=== PATIENT | male | born 1960 | race Caucasian/White ===

== ENCOUNTER 2016-06-09 10:43 | Day surgery (SDC) | payer OTHER ==
[2016-06-07 15:55] VITALS: BMI 25.7
--- NOTE | 2016-06-09 00:27 | P.GSHP ---
History of Present Illness H&P Date: 06/09/16 CHIEF COMPLAINT: Metastatic colon caner. HISTORY OF PRESENT ILLNESS: The patient is a 55-year-old male diagnosed with metastatic colon cancer. He needs a Mediport placement for chemotherapy. PAST MEDICAL HISTORY: See list PAST SURGICAL HISTORY: See list CURRENT MEDICATIONS: See list. ALLERGIES: See list. SOCIAL HISTORY: No active tobacco or alcohol use. FAMILY HISTORY: Noncontributory. REVIEW OF ORGAN SYSTEMS: CONSTITUTIONAL: Has weight loss. PHYSICAL EXAMINATION: Vital signs: Stable GENERAL: Well developed and in no acute distress. Pleasant. HEENT: No sclera icterus. Extraocular movements grossly intact. Moist buccal mucosa. Head is atraumatic, normocephalic. Hears conversational speech. No nasal drainage. NECK: Supple without lymphadenopathy. No JV distention. CHEST: Non-labored respirations and equal bilateral excursions. CARDIOVASCULAR: Regular rate and rhythm. Palpable 2+ radial pulses. ABDOMEN: Nontender. MUSCULOSKELETAL: No clubbing, cyanosis or edema. NEUROLOGIC: No focal or lateralizing signs. PSYCH: Appropriate affect. Alert and oriented to person, place and time. ASSESSMENT: 1. Metastatic colon caner. 2. Need for chemotherapeutic access. PLAN: 1. Agree with Port-A-Cath placement. Past Medical History Past Medical History: Cancer, Hyperlipidemia, Skin Disorder Additional Past Medical History / Comment(s): COLON CA CURRENT, POSS LIVER ALSO. SKIN GRAFTS UPPER TORSO, 45% FULL THICKNESS D/T WORK INJURY. History of Any Multi-Drug Resistant Organisms: None Reported Additional Past Surgical History / Comment(s): COLONOSCOPY 06/05/16. SKIN GRAFTS TO UPPER TORSO, 45%. Past Anesthesia/Blood Transfusion Reactions: No Reported Reaction Past Psychological History: No Psychological Hx Reported Smoking Status: Current every day smoker Past Alcohol Use History: Occasional Additional Past Alcohol Use History / Comment(s): SMOKED SINCE AGE 17 (QUIT FOR 2 YEARS IN PAST), 1 PPD. Past Drug Use History: None Reported - Past Family History Father Family Medical History: Cancer Mother Family Medical History: Cancer Medications and Allergies Home Medications Medication Instructions Recorded Confirmed Type Ferrous Sulfate [Feosol] 200 mg PO DAILY 06/07/16 06/07/16 History Naproxen Sodium [Aleve] 220 mg PO BID PRN 06/07/16 06/07/16 History Allergies Allergy/AdvReac Type Severity Reaction Status Date / Time aspirin Allergy Swelling Verified 06/07/16 15:29
[~2016-06-09 10:43] MED LIST: DEXAMETHASONE SOD PHOSPHATE 10 MG/ML 1 ML VIAL IV ONE; HYDROmorphone 1 MG/ML 1 ML SYRINGE IVP PRN; LACTATED RINGERS 1,000 ML IV SCH; LIDOCAINE 1% 20 ML VIAL (10MG/ML) FOR IV START INTRADERMA PRN; MIDAZOLAM 2 MG/2 ML VIAL IV PRN; ONDANSETRON 4 MG/2 ML VIAL IVP ONE; SCOPOLAMINE 1.5MG/72HR PATCH TRANSDERM ONE; ceFAZolin 2 GM in SODIUM CHLORIDE 0.9% 100 ML IVPB ONE
[2016-06-09 11:34] VITALS: TEMP 98.2
[2016-06-09 12:21] LABS: Prothrombin Time 10.2 sec (9.0-12.0)
[2016-06-09 12:36] LABS: Partial Thromboplastin Time 19.1 sec (22.0-30.0)
[2016-06-09] MEDS ORDERED: LIDOCAINE 1% INJ 10MG/ML (20 ML MDV) SQ ONE ×2 (13:06→13:47)
[2016-06-09] MEDS ORDERED: MIDAZOLAM 2 MG/2 ML VIAL ONE (13:21)
[2016-06-09] MEDS ORDERED: LIDOCAINE 1% INJ 10MG/ML (20 ML MDV) ONE (13:21)
[2016-06-09] MEDS ORDERED: PROPOFOL 10 MG/ML 20 ML VIAL IV ONE (13:21)
[2016-06-09] MEDS ORDERED: KETAMINE 10 MG/ML 20 ML VIAL ONE (13:21)
[2016-06-09] MEDS ORDERED: SODIUM CHLORIDE 0.9% 50 ML with ceFAZolin 2,000 MG IV ONE ×2 (13:21)
[2016-06-09] MEDS ORDERED: fentaNYL (PF) 50 MCG/ML 2 ML AMP ONE (13:21)
[2016-06-09] MEDS ORDERED: ONDANSETRON 4 MG/2 ML VIAL IVP PRN (14:18)
[2016-06-09] MEDS ORDERED: NALOXONE 0.4 MG/ML 1 ML VIAL IV PRN (14:18)
[2016-06-09] MEDS ORDERED: HYDROcodone/APAP 5-325MG 1 EACH TAB PO PRN (14:18)
--- NOTE | 2016-06-09 14:23 | P.PCN ---
Date of Procedure: 06/09/16 Description of Procedure: SURGEON: GLORIA CLIFFORD MD WOOL HANKER: None. PREOPERATIVE DIAGNOSES: 1. Metastatic colon cancer. 2. Need for chemotherapeutic access. POSTOPERATIVE DIAGNOSES: 1. Metastatic colon cancer. 2. Need for chemotherapeutic access. PROCEDURES PERFORMED: 1. Ultrasound guided central venous access of the left internal jugular venous vein. 2. Fluoroscopic guidance for central venous access left internal jugular vein 6 seconds. 3. Placement of left internal jugular power port 6 Indonesian by Bard. ANESTHESIA: IV sedation with 20 mL 1% lidocaine. ESTIMATED BLOOD LOSS: 5 mL. SPECIMENS REMOVED: None. COMPLICATIONS: None. INDICATIONS: The patient is a 55-year-old male recently diagnosed with metastatic colon cancer. He presents for chemotherapeutic access for progression of his disease. Benefits and risks of surgical intervention were described including bleeding, infection, mechanical problems with his port. Informed consent was obtained. DESCRIPTION OR PROCEDURE: Patient was brought into the operating room, laid in supine position. After adequate IV sedation, the chest and right neck were prepped and draped in a standard sterile fashion including the shoulder with ChloraPrep. Timeout protocol was confirmed with the surgical team regarding the patient's name, procedure to be performed including preoperative medications for which he received antibiotics. Bilateral SCDs were placed. An ultrasound was used to capture views of the left internal jugular vein including left carotid artery, which was patent and without thrombus along its course. The left IJ was then localized using anesthetic for the skin. A 16 Indonesian needle was used to access the IJ. Threading was without difficultly as the needle was advanced into the IJ with dark nonpulsatile venous blood. A J-wire was placed under fluoroscopic guidance. Two fingerbreadths distal to the clavicle, on the lateral third, a transverse 1.5 to 2 cm incision was deepened into the skin after localizing the skin. A pocket was created for the port. The port on the back table was flushed with heparinized saline and then attached to the catheter tubing. An adapter was fastened to the actual port site over the tubing. The port easily had fit snug into the pocket. A subcutaneous tunneler was placed along the open end of the tubing and brought out through the separate stab incision. Fluoroscopic guidance confirmed no kinking along the tubing and the port site. Next, the J-wire was exchanged for a catheter sheath for which the tubing was cut to 30 cm and then advanced through the catheter sheath. The Peel-away sheath was then removed and the tubing was secured at the junction of the superior vena cava as well as the right atrium. This was all done under fluoroscopic guidance for a total of 6 seconds. Easy pullback as well as return and aspiration was obtained of the port site. The skin incision was closed using layers using 3-0 Vicryl for the subcu followed by 4-0 Monocryl in a running subcuticular fashion. At the stick site this was also reapproximated using 4-0 Monocryl. The incisions were covered with gauze and Tegaderm. The skin was cleansed and Dermabond was applied. A total of 20 mL of local anesthetic was placed. At the end of the procedure, needle, sponge, and instrument count was verified correct by surgical elastic knitter. Heparin lock of 5 mL was placed. The patient was awoken and pain free and taken to the second stage postanesthesia care unit. The patient tolerated the procedure well. FINDINGS: 1. No thrombus encountered along the left carotid artery or internal jugular vein. 2. Access of the left internal jugular vein under ultrasound guidance. 3. Fluoroscopy of 6 seconds. 4. Final fluoroscopic image confirmed no mechanical kink of the port site or at the junction at the skin puncture site. Plan - Discharge Summary Discharge Medication List Ferrous Sulfate [Feosol] 200 mg PO DAILY 06/07/16 [History] Naproxen Sodium [Aleve] 220 mg PO BID PRN 06/07/16 [History] Follow up Appointment(s)/Referral(s): Gloria Clifford MD [STAFF PHYSICIAN] - 06/13/16 Patient Instructions/Handouts: *Surgery [facility] - (Anesthesia) Discharge Instructions Outpatient Surgery, How to Care for Your Implanted Venous Access Port (GEN) Activity/Diet/Wound Care/Special Instructions: No wide swings of the arm. May shower. Dressing may be removed in the office, otherwise by June 13 Discharge Disposition: HOME SELF-CARE
--- NOTE | 2016-06-09 14:44 | FL ---
EXAMINATION TYPE: FL guidance operating room DATE OF EXAM: 06/09/2016 2:17 PM CLINICAL HISTORY: Colon cancer, Port-A-Cath for chemotherapy. TECHNIQUE: Fluoroscopy. COMPARISON: None. FINDINGS: Fluoroscopic guidance was provided during Port-A-Cath insertion procedure performed by Dr. Clifford. A total of 6 seconds of fluoroscopic time was utilized during the procedure and 1 spot i mage is acquired. Single intraoperative image acquired shows partial visualization of left internal j ugular Mediport catheter. IMPRESSION: As Above.
[2016-06-09 14:48] VITALS: PULSE 76; RESP 18
[2016-06-09 15:00] VITALS: BP 132/83
--- NOTE | 2016-06-09 15:14 | XR ---
EXAMINATION TYPE: XR chest 1V confirm line [facility] DATE OF EXAM: 06/09/2016 2:41 PM COMPARISON: NONE HISTORY: 55-year-old male port placement TECHNIQUE: Single frontal view of the chest is obtained. FINDINGS: Left anterior chest wall injection port with IJ access. The superior loop extends above and outside t he field of view. The tip is at the level of the mid SVC. Heart is normal size. Aorta within normal l imits. There is a 1.1 cm nodular density projecting at the peripheral left midlung. No consolidation or pleural effusion. IMPRESSION: 1. Left-sided chest wall injection port with catheter tip at the mid SVC level. The superior IJ loop extends up in the neck beyond the [id number]. 2. Suggestion of a 1.1 cm left midlung pulmonary nodule. Correlate as to if this is a known nodule. I f this is not a known nodule, contrast-enhanced CT chest evaluation would be recommended.
== END 2016-06-09 15:36 | disposition home or self-care (01) ==
LOC: OR 10:43
PROVIDERS: ATTEND Surgery Plastic and Reconstructive Surgery
DX: C18.9 Malignant neoplasm of colon, unspecified (principal); C78.00 Secondary malignant neoplasm of unspecified lung; C78.7 Secondary malignant neoplasm of liver and intrahepatic bile duct; R91.8 Other nonspecific abnormal finding of lung field; E78.5 Hyperlipidemia, unspecified; F17.200 Nicotine dependence, unspecified, uncomplicated; Z79.1 Long term (current) use of non-steroidal anti-inflammatories (NSAID); Z79.899 Other long term (current) drug therapy; Z88.6 Allergy status to analgesic agent
CPT/HCPCS: 36561; 85610; 85730; C1788; J2250; J1100; J2405; J0690; J2001; J3010; J1642; J2704; J1644

== ENCOUNTER → 2016-06-10 | Outpatient (CLI) | payer OTHER ==
--- NOTE | 2016-06-12 19:05 | PE ---
EXAMINATION TYPE: PET CT fusion skull to thigh DATE OF EXAM: 06/10/2016 10:30 AM CLINICAL HISTORY: 55-year-old male colon cancer, initial staging. Patient with left-sided port placem ent on 06/09/2016. TECHNIQUE: Following the intravenous administration of 15.59 mCi of F-18 FDG, whole body images are performed from the skull base to the midthigh. Images are reviewed on the computer in the coronal, axial, and sagittal planes. Reconstructed rotating images are created on independent workstation and reviewed on the computer. A localization and attenuation correction CT is performed in conjunction with the PET scan. Glucose level: 93 mg/dL CTDI: 4.6 mGy DLP: 409.56 mGy-cm COMPARISON: None. FINDINGS: PET: There is a 2.0 x 1.2 cm ovoid intermediate density lesion along the left inferior margin of the hyoid bone, axial image 39 that shows no discrete FDG uptake. A 9 mm anterior right middle lobe pulmonary nodule, axial image 100 (no significant uptake), 7 mm ant erior left midlung pulmonary nodule axial image 83 (no significant uptake), and a 1.1 cm lingular pul monary nodule axial image 93 (max SUV 1.2) are all suspicious. There are too numerous to count partially calcified masses within the liver, largest anteriorly in th e left hepatic lobe measuring approximately 3.8 cm highly suggestive of mucinous metastases, maximal SUV 11.4. Incidental tiny 8 mm low-density nodule lateral limb left adrenal gland. This shows no discrete FDG u ptake and is suggestive of a small lipid rich adrenal adenoma. There is abnormal soft tissue thickening measuring up to 6.8 cm at the ileocecal junction within the cecum, maximal SUV 13.6. There are adjacent right lower quadrant and right mid abdominal mesenteric lymph nodes that are enlar ged measuring up to 1 cm, axial image 175, maximal SUV 1.9, that are probably reactive given the lack of significant uptake. There is focal intense FDG uptake in the posterior midline of the prostate gland probably some urine. However, given focality, further evaluation with PSA and physical exam findings is recommended, maxi mal SUV 8.9. ATTENUATION CORRECTION CT: Large polyp or mucosal retention cyst within the left maxillary sinus shows no FDG uptake. Mastoid ai r cells well pneumatized. No cervical lymphadenopathy seen. Left anterior chest wall injection port with tip at the level of the lower SVC. Heart is normal size without pericardial effusion. Ascending aorta is ectatic at 3.7 cm with a conventional arch vessel br anching anatomy. No thoracic lymphadenopathy by CT size criteria. Incidental mild bilateral gynecomas tia. No consolidation or pleural effusion. Cholelithiasis with faceted gallstones measuring up to 1.6 cm. No abnormal gallbladder distention. No dilated small bowel, free fluid, or free air. Mild atherosclerotic calcifications throughout the a bdominal aorta and mild to moderate within the iliac arteries. There is moderate circumferential bladder wall thickening and incomplete bladder distention. Prostate gland is enlarged measuring 4.8 cm wide. Bones: Mild degenerative changes at the hips. Additional degenerative changes mid to lower lumbar spi ne. No osseous destructive process seen. IMPRESSION: 1. Large intensely hypermetabolic 6.8 cm cecal mass compatible with patient's known colon cancer. 2. Adjacent right lower quadrant and right mid abdominal mesenteric lymphadenopathy measuring up to 1 cm. These may be reactive given only minimal FDG uptake. 3. Diffuse hepatic metastases measuring up to 3.8 cm show intense hypermetabolism. These calcified me tastatic lesion suggest mucinous metastasis. 4. Three metastatic pulmonary nodules measuring up to 1.1 cm. 5. Correlate with PSA values and physical exam findings for a nodule of intense uptake along the midl ine posterior prostate. Findings could represent prostate cancer or urine contamination along the pro static urethra. 6. Incidental 2.0 cm ovoid lesion along the inferior margin of the left hyoid bone shows no significa nt FDG uptake. A thyroglossal duct cyst is suspected. Correlate with physical exam findings and targe rosa ultrasound to further evaluate. 7. Moderate circumferential bladder wall thickening could represent bladder wall hypertrophy or cysti tis. Additional incidental findings include cholelithiasis and an 8mm left adrenal adenoma.
== END | disposition home or self-care (01) ==
LOC: RADPETMAIN 07:55
PROVIDERS: ATTEND Internal Medicine Hematology & Oncology
DX: C18.2 Malignant neoplasm of ascending colon (principal); R59.0 Localized enlarged lymph nodes; C78.7 Secondary malignant neoplasm of liver and intrahepatic bile duct; R91.8 Other nonspecific abnormal finding of lung field; M89.9 Disorder of bone, unspecified; R93.49 Abnormal radiologic findings on diagnostic imaging of other urinary organs
CPT/HCPCS: 78815; A9552

== ENCOUNTER 2016-06-19 07:54 | Day surgery (SDC) | payer OTHER ==
[2016-06-19] MEDS ORDERED: ALPRAZolam 0.5 MG TAB PO STA (08:32)
[2016-06-19 08:36] LABS: Mean Platelet Volume 6.3
[2016-06-19 08:39] LABS: Prothrombin Time 10.3 sec (9.0-12.0)
[2016-06-19] MEDS ORDERED: HYDROmorphone 1 MG/ML 1 ML SYRINGE IVP STA (09:03)
--- NOTE | 2016-06-19 09:55 | CT ---
EXAMINATION TYPE: CT guided FNA DATE OF EXAM: 06/19/2016 9:49 AM COMPARISON: NONE HISTORY: Colon cancer CT DLP: 1393mGycm PROCEDURE: The risks, applications, benefits and alternatives, were discussed with the patient and questions wer e answered. Informed consent was obtained. The patient was placed supine on the fluoroscopic table, prepped and draped in the usual sterile fashion. A 22-gauge system was utilized with direct passage of the needle into the left lobe liver lesion und er CT guidance. Samples were obtained with fine needle aspiration. Pathology confirmed adequate queenie ple. The patient was stable throughout procedure and remained stable upon discharge from radiology. All e lements of maximal barrier and sterile technique were utilized. IMPRESSION: 1. Successful left lobe liver mass fine needle aspiration under CT guidance.
[2016-06-19 12:54] VITALS: RESP 16; TEMP 97
[2016-06-19 13:02] VITALS: BP 102/71; PULSE 82
== END 2016-06-19 13:34 | disposition home or self-care (01) ==
LOC: RADPROMAIN 07:54
PROVIDERS: ATTEND Internal Medicine Hematology & Oncology
DX: C78.7 Secondary malignant neoplasm of liver and intrahepatic bile duct (principal)
CPT/HCPCS: 88305; 88173; 85049; 85610; 88342; 88341; 96374; 77012; 10022; J1170; J1642

== ENCOUNTER → 2016-09-20 | Outpatient (CLI) | payer OTHER ==
[2016-09-20 10:54] LABS: Blood Urea Nitrogen 16 mg/dL (9-20); Non-African American GFR(MDRD) >60 (>60 ml/min/1.73 sqM)
--- NOTE | 2016-09-20 13:50 | CT ---
EXAMINATION TYPE: CT ChestAbdPelvis w con DATE OF EXAM: 09/20/2016 COMPARISON: Prior CT dated 06/05/2016 HISTORY: Colon cancer. Suspected Mets CT DLP: 1491 mGycm Automated exposure control for dose reduction was used. CONTRAST: CT scan of the chest, abdomen and pelvis is performed with Oral Contrast and with IV Contrast, patien t injected with 100 ml mL of Omnipaque 300. FINDINGS: LUNGS: The left upper lobe lung nodule now measures approximately 7 mm medially on axial slice 21 kiran sured 8 mm on prior. The larger left upper lobe lung nodule laterally on axial image 29 measuring 9 m m on today's exam and approximately 14 mm on previous. The right upper lobe lung nodule measures appr oximately 7 to 8 mm on today's exam and measured 9 mm on prior. MEDIASTINUM: There are no greater than 1 cm hilar or mediastinal lymph nodes. No pericardial effusi on is seen. AORTA: No significant abnormality is seen. OTHER: No additional significant abnormality is seen. LIVER/GB: Multiple liver lesions are again noted. The medial left lobe lesion measures approximately 3.5 cm in greatest dimension on today's exam and measured approximately 4.8 cm in greatest dimension on prior. Lesion towards the dome measures approximately 19 mm on today's exam and measured approxima tely 2.4 cm on previous. Subcentimeter calcified lesions additional lesion show smaller dimensions as compared to prior. Again noted compatible with patient's history of colon cancer. PANCREAS: No significant abnormality is seen. SPLEEN: Spleen is enlarged and now measures approximately 14 cm which is increased compared to prior exam. ADRENALS: No significant abnormality is seen. KIDNEYS: No significant abnormality is seen. REPRODUCTIVE ORGANS: The prostate is enlarged. BOWEL: Abnormal thickening present at the level of the appendix although there is some luminal contr ast present. The cecum shows abnormal thickening of soft tissue similar to prior exam. There is likel y a lipoma in the 3rd-4th portion of the duodenum. FREE AIR: No Free Air visible. ASCITES: None seen. RETROPERITONEAL ADENOPATHY: No retroperitoneal adenopathy is seen. LYMPH NODES: No greater than 1 cm abdominal or pelvic lymph nodes are appreciated. URINARY BLADDER: Urinary bladder wall thickening likely due to chronic outlet obstruction. PELVIC ADENOPATHY: None visualized. OSSEOUS STRUCTURES: No significant abnormality is seen. IMPRESSION: Findings compatible with metastatic colon cancer, there is apparent treatment response as described. Splenomegaly.
== END | disposition home or self-care (01) ==
LOC: RADPROMAIN 10:08
PROVIDERS: ATTEND Internal Medicine Hematology & Oncology
DX: C18.2 Malignant neoplasm of ascending colon (principal); R16.1 Splenomegaly, not elsewhere classified
CPT/HCPCS: 82565; 84520; 71260; 74177; 36415; Q9967; J1642

== ENCOUNTER → 2016-12-26 | Outpatient (CLI) | payer OTHER ==
[2016-12-26 09:39] LABS: Blood Urea Nitrogen 11 mg/dL (9-20); Non-African American GFR(MDRD) >60 (>60 ml/min/1.73 sqM)
--- NOTE | 2016-12-26 12:12 | CT ---
EXAMINATION TYPE: CT ChestAbdPelvis w con DATE OF EXAM: 12/26/2016 COMPARISON: 09/20/2016 HISTORY: 56-year-old male colon CA with mets TECHNIQUE: Contiguous axial scanning of the chest, abdomen, and pelvis performed with IV Contrast, pa tient injected with 100 mL of Omnipaque 300. Delayed images through the kidneys were obtained. Marshall l/sagittal reconstructions performed. CT DLP: 586.4 mGycm Automated exposure control for dose reduction was used. FINDINGS: CHEST: Heart is normal size without pericardial effusion. Ectatic ascending aorta 3.6 cm. There is conventional arterial vessel branching anatomy. Scattered nonenlarged mediastinal lymph nodes are unchanged from prior. No thoracic lymphadenopathy b y CT size criteria. Mild dependent atelectasis in the lungs. - Stable 3 mm pulmonary nodule on the minor fissure, axial image 36. - 5 mm anterior left midlung pulmonary nodule axial image 27 versus 7 mm, previously. - 7 mm lingular pulmonary nodule smaller now. Measured 9 mm on 09/20/2016 and 11 mm on 06/10/2016. - Minimal poorly defined groundglass at the site of the anterior right middle lobe pulmonary nodule, axial image 42, versus 6 mm and 9 mm on 09/20/2016 and 06/10/2016, respectively. No acute pulmonary nodule is seen. No consolidation or pleural effusion. Mild bilateral gynecomastia. ABDOMEN: Partially calcified metastases are redemonstrated in the liver. - These are either stable or minimally smaller, largest centrally in the liver measuring 3.0 cm versu s 3.1 cm, previously. - Left hepatic dome mass measures 2.5 cm versus 2.7 cm, previously. - Right hepatic dome lesion measures 2.2 cm versus 2.4 cm, previously. - Segment 6 right liver lobe mass measures 1.8 cm versus 1.9 cm, previously. - Some lesions show increasing calcifications that could reflect some degree of treatment response. Portal venous system is patent. No biliary ductal dilatation. Multiple gallstones are present measuring up to 1.7 cm. Spleen is enlarged measuring 16.9 cm on axial series versus 14.1 cm, previously. Adrenal glands, kidneys, and pancreas show no gross abnormality. Continued cecal wall thickening extending to the region of the ileocecal junction. Right lower quadra nt mesenteric lymph node just adjacent measures up to 7 mm versus 9 mm, previously. There adjacent no nenlarged lymph nodes are also slightly smaller. Persistent mild wall thickening of the appendix but with contrast extending within the lumen. There is mild fat stranding along the cecum probably posttreatment change. Scattered prominent mesenteric lymph nodes such as in the left abdomen measure up to 7 mm but do not appear significantly changed, likely reactive/post inflammatory. Redemonstrated lipoma along the third portion of the duodenum. No dilated small bowel, free fluid, or free air. Oral contrast progressed to the rectum. Pelvis: Bladder is urine distended. Prostate gland is enlarged measuring 5.2 cm wide. No abnormal fluid colle ction in the pelvis or pelvic lymphadenopathy seen. Bones: Probable vasectomy clips. Degenerative changes lower lumbar spine. Old healed fracture deformity righ t posterior rib. No osseous destructive process. IMPRESSION: 1. Residual cecal wall thickening at the site of patient's known colon cancer. There is some surround ing fat stranding now and mild edema that could relate to posttreatment change. 2. Adjacent right lower quadrant mesenteric lymph nodes are slightly smaller now measuring up to 7 mm versus 9 mm, previously. 3. Hepatic metastases are either stable or slightly smaller in size, having increased by a few millim eters. Largest measuring 3.1 cm. The lesions are partially calcified which could reflect mucinous met astases or posttreatment effect. 4. The 3 previous pulmonary nodules are smaller, largest measuring up to 7 mm versus 9 mm, previously . One of the nodules has nearly resolved. 5. Splenomegaly (16.9 cm versus 14.1 cm, previously).
== END | disposition home or self-care (01) ==
LOC: RADPROMAIN 08:57
PROVIDERS: ATTEND Internal Medicine Hematology & Oncology
DX: C78.7 Secondary malignant neoplasm of liver and intrahepatic bile duct (principal); C18.2 Malignant neoplasm of ascending colon; R91.8 Other nonspecific abnormal finding of lung field; R16.1 Splenomegaly, not elsewhere classified; R60.0 Localized edema; Z88.6 Allergy status to analgesic agent
CPT/HCPCS: 82565; 84520; 71260; 74177; 36415; Q9967

== ENCOUNTER → 2017-04-11 | Outpatient (CLI) | payer OTHER ==
[2017-04-11 11:21] LABS: Blood Urea Nitrogen 13 mg/dL (9-20)
--- NOTE | 2017-04-11 14:47 | CT ---
EXAMINATION TYPE: CT ChestAbdPelvis w con DATE OF EXAM: 04/11/2017 COMPARISON: 12/26/2016 and 09/20/2016. HISTORY: Colon CA CT DLP: 639.3 mGycm. Automated Exposure Control for Dose Reduction was Utilized. CONTRAST: CT scan of the thorax, abdomen and pelvis is performed with IV Contrast, patient injected with 100 mL of Omnipaque 300. FINDINGS: LUNGS: There is a slightly smaller 2 mm pulmonary nodule within the right middle lobe on series 4 emely ge 31. A slightly smaller spiculated 6 mm pulmonary nodule is seen within the left upper lobe on seri es 4 image 31 (previously measuring 7 mm). A slightly smaller 4 mm anterior left upper lobe pulmonary nodule on series 4 image 23 previously measured 5 mm. There is resolution of the previously seen elle undglass attenuation at the site of prior right middle lobe nodule. Minimal bibasilar subsegmental at electasis is seen. No new pulmonary nodule or mass. No focal consolidation, pleural effusion or pneum othorax. MEDIASTINUM: The ascending thoracic aorta is again ectatic measuring 3.7 cm. This does not fit criter ia for aneurysmal dilatation. Left-sided Mediport terminates in the cavoatrial junction, appropriatel y placed. Similar right hilar lymph nodes measure 1.0 cm in short axis, unchanged from the prior righ t paratracheal lymph node contains calcifications as does the right hilar lymph node. There are no gr eater than 1 cm hilar or mediastinal lymph nodes. No pericardial effusion is seen. OTHER: Bilateral minimal symmetric retroareolar gynecomastia is present. LIVER/GB: Partially calcified hepatic lesions are indicative of treated metastasis seen in segment 8 on series 3 image 46 measuring 1.1 cm and 6 mm and previously measuring 1.3 cm and 6 mm and within th e left hepatic lobe on series 3 image 49 measuring 2.2 cm and previously measuring 2.5 cm. Additional lesion on image 51 mm 1.8 cm in long axis as compared to 2.2 cm on the prior exam on series 3 image 55 there is an additional 2.8 cm lesion that is minimally decreased in size from the prior exam as it measured 3.0 cm. Other smaller calcified punctate lesions are seen scattered throughout the hepatic parenchyma. Lastly within the medial right inferior hepatic lobe there is also decrease in size of an additional lesion measuring 1.3 cm on image 62 and previously measured 1.8 cm. The gallbladder demonstrates multiple large lamellated gallstones within the gallbladder neck and oth er smaller calcified gallstones within the gallbladder body layering dependently. No surrounding rafaela cholecystic fluid or fat stranding in the right upper quadrant. PANCREAS: No significant abnormality is seen. No ductal dilatation. SPLEEN: The spleen remains enlarged although has decreased in size from the prior exam where it measu red 16.9 cm in longitudinal dimension and now measures 16.1 cm on image 58. ADRENALS: No significant abnormality is seen. No nodularity. KIDNEYS: Kidneys enhance symmetrically without discrete lesion or hydronephrosis. BOWEL AND LYMPH NODES: There is persistent cecal wall thickening that has become less conspicuous in the interim with bowel wall thickening measuring up to 8 mm in the nondependent aspect. Pericecal zacarias cified lymph node on image 85 represents treated adenopathy. There is continued improvement in adenop athy with the previously seen 7 mm short axis lymph node on image 82 now measuring 4 mm, nonenlarged. No other evidence of adenopathy within the abdomen or pelvis. Again there is a lipoma, benign, along the third portion of the duodenum. GENITAL ORGANS: Prostate gland is again enlarged and heterogenous containing central zone powderlike calcifications. OSSEOUS STRUCTURES: There is redemonstration of an old healed fracture deformity of the posterior mar gin of rib 10 and 9 on the right. No new suspicious osseous lesions. OTHER: Mastectomies surgical clips are incidentally noted. Moderate calcific and noncalcific atheroma tous plaquing is seen of the abdominal aorta. Abdominal aorta is of normal course and caliber. IMPRESSION: 1. Continued response to treatment with decreased size of nearly all of the partially calcified hepat ic lesions and pulmonary nodules, decrease in size of the right lower quadrant pericecal adenopathy ( now 4 mm in short axis and nonenlarged), and improvement in degree of cecal wall thickening 2. No new adenopathy or new visceral metastasis within the chest, abdomen, or pelvis. 3. No new suspicious osseous lesions.
== END | disposition home or self-care (01) ==
LOC: RADPROMAIN 10:27
PROVIDERS: ATTEND Internal Medicine Hematology & Oncology
DX: C18.2 Malignant neoplasm of ascending colon (principal); R91.8 Other nonspecific abnormal finding of lung field; K76.9 Liver disease, unspecified; R59.0 Localized enlarged lymph nodes
CPT/HCPCS: 82565; 84520; 71260; 74177; Q9967; J1642

== ENCOUNTER → 2017-07-03 | Outpatient (CLI) | payer OTHER ==
[2017-07-03 13:55] LABS: Blood Urea Nitrogen 12 mg/dL (9-20)
--- NOTE | 2017-07-03 16:24 | CT ---
EXAMINATION TYPE: CT ChestAbdPelvis w con DATE OF EXAM: 07/03/2017 COMPARISON: 04/11/2017 HISTORY: 56-year-old male follow up study for known colon ca with mets to liver. TECHNIQUE: Contiguous axial scanning of the chest, abdomen, and pelvis performed with IV Contrast, pa tient injected with 90 mL of Isovue 300. Delayed images through the kidneys were obtained. Coronal/sa gittal reconstructions performed. CT DLP: 554.5 mGycm Automated exposure control for dose reduction was used. FINDINGS: Chest: Heart normal size without pericardial effusion. Borderline ectasia ascending aorta at 3.5 cm. Conventional arch vessel branching anatomy. Left anterior chest wall injection port with catheter tip at the mid SVC level. A 1 cm right hilar lymph node is unchanged. Otherwise, no thoracic lymphadenopathy by CT size criteri a. -Anterior left midlung pulmonary nodule smaller 5 mm versus 6 mm on 04/11/2017. -Minimal punctate 2 mm nodularity remains in the anterior right midlung relatively stable. -4 mm anteromedial left midlung pulmonary nodule axial image 20 is unchanged to slightly smaller. No new pulmonary nodule or mass. Mild dependent atelectasis. No consolidation or pleural effusion. ABDOMEN: Small hiatal hernia. Mild hepatic ascites laterally. Partially calcified liver lesions are redemonstrated. These are either stable to slightly smaller, fo r example, anterior left liver lobe measuring 2.0 cm versus 2.2 cm, previously, 1.8 cm right liver lo be versus 2.0 cm, previously, 2.1 cm at the shweta hepatis versus 2.8 cm, previously. Redemonstrated cholelithiasis with calculi measuring up to 1.6 cm. Portal venous system is patent. No biliary ductal dilatation. Adrenal glands, kidneys, and pancreas show no gross abnormality. Redemonstrated is splenomegaly at 17.0 cm versus 16.1 cm, previously. There is mild intra-abdominal edema. Residual wall thickening along the cecum at the site of patient' s known primary colon cancer. There is mixed contrast and air within the appendix. Right lower quadrant lymph nodes are nonenlarged measuring 5 mm not significantly changed read There is suggestion of some wall thickening along the upper ascending colon, hepatic flexure, and pro ximal transverse colon with pericolonic fat stranding. Scattered mild to moderate stool with redundan t sigmoid colon. Edema tracks along the right side of the retroperitoneum. Incidental 1.6 cm lipoma within the third portion of the duodenum. No new mesenteric or retroperitoneal lymph nodes seen. Mild to moderate atherosclerotic calcifications within the infrarenal abdominal aorta and iliac arter ies. Pelvis: Bladder is urine distended. Prostate gland prominent measuring 4.8 cm wide. Surgical material likely relating to bilateral vasectomy. Mild to moderate pelvic free fluid. No pelvic lymphadenopathy. Bones: Scattered mild degenerative changes throughout the spine. No osseous destructive process. IMPRESSION: 1. PARTIALLY CALCIFIED LIVER METASTASES ARE EITHER STABLE OR SMALLER WITH SOME EXAMPLE MEASUREMENTS A KAREN. 2. A FEW SMALL PULMONARY NODULES MEASURE UP TO 5 MM AND ARE ALSO STABLE OR A MILLIMETER SMALLER. 3. SIMILAR WALL THICKENING OF THE CECUM AT THE SITE OF PATIENT'S KNOWN PRIMARY NEOPLASM. 4. HOWEVER, THERE IS NEW WALL THICKENING OF THE UPPER ASCENDING COLON, HEPATIC FLEXURE, AND PROXIMAL TRANSVERSE COLON. SURROUNDING INFLAMMATORY FAT STRANDING AND TRACKING EDEMA IS PRESENT. CORRELATE FOR A NONSPECIFIC COLITIS. 5. IN ADDITION TO THIS INFLAMMATION, THERE IS MILD PERIHEPATIC ASCITES AND MILD TO MODERATE PELVIC CITES WITH SOME NEW EDEMA OF THE INTRA-ABDOMINAL FAT. CORRELATE WITH PATIENT'S FLUID STATUS. FINDINGS MAY BE SECONDARY TO THE ABOVE INFLAMMATION. 6. CONTINUED SPLENOMEGALY (17.0 CM VERSUS 16.1 CM, PREVIOUSLY). 7. CHOLELITHIASIS AND SMALL HIATAL HERNIA.
== END | disposition home or self-care (01) ==
LOC: RADPROMAIN 13:03
PROVIDERS: ATTEND Internal Medicine Hematology & Oncology
DX: C18.2 Malignant neoplasm of ascending colon (principal); C78.7 Secondary malignant neoplasm of liver and intrahepatic bile duct; K63.89 Other specified diseases of intestine; K80.20 Calculus of gallbladder without cholecystitis without obstruction; K44.9 Diaphragmatic hernia without obstruction or gangrene; R91.8 Other nonspecific abnormal finding of lung field; R18.8 Other ascites; R16.1 Splenomegaly, not elsewhere classified
CPT/HCPCS: 82565; 84520; 71260; 74177; J1642; Q9967

== ENCOUNTER → 2017-09-24 | Outpatient (CLI) | payer OTHER ==
[2017-09-24 10:59] LABS: Blood Urea Nitrogen 12 mg/dL (9-20)
--- NOTE | 2017-09-24 13:34 | CT ---
EXAMINATION TYPE: CT ChestAbdPelvis w con DATE OF EXAM: 09/24/2017 COMPARISON: 07/03/2017 HISTORY: Colon cancer, suspect mets CT DLP: 713.00 mGycm CONTRAST: CT scan of the chest, abdomen and pelvis is performed with Oral Contrast and with IV Contrast, patien t injected with 100 ml mL of Isovue 300. CT Chest: LUNGS: Between 16 and 27 3 mm pulmonary nodules right lung which are new. 10 similar-appearing nodule s scattered throughout the left lung. MEDIASTINUM: Ectasia ascending thoracic aorta 3.6 cm. Ascending thoracic aorta of normal caliber. The heart is not enlarged. No evidence for mediastinal mass or adenopathy. HILAR STRUCTURES: Right hilar adenopathy measuring 1.2 cm. OTHER: No significant abnormality. CONTRAST CT ABDOMEN AND PELVIS FINDINGS: LIVER/GB: Calcified hepatic metastases are again noted and appear to be smaller in size. Largest lesi on within the left lobe currently measures 1 cm versus 2 cm. Largest lesion anterior segment right he patic lobe measures 1.7 cm versus 1.8 cm previously. No increase in overall number of lesions. Calcif ied cholelithiasis. PANCREAS: No inflammation. No distinct mass. SPLEEN: Splenomegaly with craniocaudal measurement of 14.2 cm versus 17 cm previously. No lesion seen . ADRENALS: No nodule. No thickening. KIDNEYS/BLADDER: No hydronephrosis. No nephrolithiasis. No distinct renal mass. BOWEL: Persistent wall thickening in the region of the cecum and ascending colon extending to the hep atic flexure and proximal transverse colon. There is also thickening of the appendix wall which appea rs to be stable relative to the prior study. Paracolonic subcentimeter lymph nodes are again noted. N o new areas of bowel wall thickening. Small bowel is of normal caliber. GENITAL ORGANS: No gross abnormality. LYMPH NODES: No greater than 1cm abdominal or pelvic lymph nodes are appreciated. AORTA: No significant abnormality. OSSEOUS STRUCTURES: No significant abnormality is seen. OTHER: No significant additional abnormality is seen. IMPRESSION: 1. Increase in the number of pulmonary nodules as noted above. 2. Stable number of the partially calcified hepatic lesions which have the decreased in size and for the most part. 3. Improving splenomegaly. 4. Stable thickening of the cecum as well as right hemicolon as noted above.
== END | disposition home or self-care (01) ==
LOC: RADPROMAIN 10:22
PROVIDERS: ATTEND Internal Medicine Hematology & Oncology
DX: K76.89 Other specified diseases of liver (principal); R16.1 Splenomegaly, not elsewhere classified; K63.89 Other specified diseases of intestine
CPT/HCPCS: 82565; 84520; 71260; 74177; J1642; Q9967

== ENCOUNTER → 2017-12-18 | Outpatient (CLI) | payer OTHER ==
[2017-12-18 10:58] LABS: Blood Urea Nitrogen 15 mg/dL (9-20)
--- NOTE | 2017-12-18 13:21 | CT ---
EXAMINATION TYPE: CT ChestAbdPelvis w con DATE OF EXAM: 12/18/2017 COMPARISON: CT chest abdomen and pelvis September 24, [address] PET/CT May 21, 2016 HISTORY: Colon cancer observe for metastases, completed chemotherapy today CT DLP: 852.8 mGycm. Automated Exposure Control for Dose Reduction was Utilized. CONTRAST: CT scan of the thorax, abdomen and pelvis is performed with IV Contrast, patient injected with 100 mL of Isovue 300. FINDINGS: LUNGS: Scattered nodules measuring 4 mm or smaller in size are redemonstrated. They are improved from initial CTs. Largest in the lingula measures 4 mm axial image 33 grossly stable from most recent mya dy. No new greater than 4 mm parenchymal nodules or masses are present MEDIASTINUM: There are no new greater than 1 cm hilar or mediastinal lymph nodes. There is stable pro minent right hilar borderline enlarged lymph node axial image 28. No cardiomegaly or pericardial eff usion is seen. Ascending aorta measures up to 3.6 cm diameter axial image 29 significant change from prior OTHER: Small degree of bilateral gynecomastia is redemonstrated. LIVER/GB: Hepatic metastatic lesions are redemonstrated significantly improved from initial studies. Partially calcified lesion anterior left hepatic lobe axial image 51 is grossly stable difficult to a ccurately measure on current study. Partially calcified lesion right hepatic lobe axial image 53 is g rossly stable measuring 1.6 cm long axis on current study vague hypodense lesion centrally axial imag e 56 is grossly stable from most recent study. Dependent gallstones in gallbladder redemonstrated. There is persistent abnormal gallbladder wall thi ckening. Mild surrounding inflammatory change or fat stranding is redemonstrated PANCREAS: No significant abnormality is seen. SPLEEN: Splenomegaly is redemonstrated measuring 16.6 cm long axis axial image 52. ADRENALS: No significant abnormality is seen. KIDNEYS: No renal mass or hydronephrosis is present bilaterally. BOWEL: Oral contrast reaches level of redundant sigmoid colon. There is no suspicious small or large bowel dilatation. Some mild wall thickening in the terminal ileum and cecum near ileocecal valve robbie ins present could reflect some residual tumor at this level. It is not significantly changed from mos t recent CT. GENITAL ORGANS: Heterogeneous prostate gland is upper limits of normal in size without significant in terval change. LYMPH NODES: No greater than 1cm abdominal or pelvic lymph nodes are appreciated. OSSEOUS STRUCTURES: Slight scoliotic curvature in the thoracolumbar spine is seen. Multilevel spurrin g is present. Facet arthropathy lower lumbar spine is noted. OTHER: Moderate calcified plaque of the infrarenal abdominal aorta extending into branch vessels is r edemonstrated. IMPRESSION: Marked improvement since initial studies of May 2016. No significant interval change f rom most recent CT September 24, 2017. Persistent right-sided colonic mass or neoplasm with stable pulmo nary and hepatic metastatic disease. Stable inflammatory change to gallbladder may be product of mian tment.
== END | disposition home or self-care (01) ==
LOC: RADPROMAIN 10:16
PROVIDERS: ATTEND Internal Medicine Hematology & Oncology
DX: C78.7 Secondary malignant neoplasm of liver and intrahepatic bile duct (principal); C78.00 Secondary malignant neoplasm of unspecified lung; C18.2 Malignant neoplasm of ascending colon; Z88.6 Allergy status to analgesic agent
CPT/HCPCS: 82565; 84520; 71260; 74177; J1642; Q9967

== ENCOUNTER → 2018-04-01 | Outpatient (CLI) | payer OTHER ==
[2018-04-01 11:10] LABS: Blood Urea Nitrogen 18 mg/dL (9-20)
--- NOTE | 2018-04-01 17:16 | CT ---
EXAMINATION TYPE: CT ChestAbdPelvis w con DATE OF EXAM: 04/01/2018 INDICATION: Colon CA COMPARISON: 12/18/2017 CT DLP: 1236 mGycm CONTRAST: Performed with Oral Contrast and with IV Contrast, patient injected with 100 mL of Isovue 300. TECHNIQUE: Axial images at 5 mm thick sections. Reconstructed images in the coronal plane. Delayed images through the kidneys. FINDINGS: CT CHEST: Portion of the thyroid visualized is normal. There is a 0.4 cm nodule within the left lung. Series 3 image 30. This was present previously. Puncta te density in the periphery of the right apex remains present. Series 3 image 8. No enlarged mediastinal or hilar adenopathy is evident. The ascending aorta diameter at the level of the main pulmonary artery is 3.4 cm. The main pulmonary artery diameter at the bifurcation is 2.[address] ABDOMEN: Liver: Mild fatty infiltration may be present. There is some irregular areas of enhancement within th e liver which are stable from comparison. Metastatic disease is not excluded. The larger in the right lobe liver measuring 0.6 cm exam. An additional area adjacent to the ligamentum teres is stable. Spleen: Prominent measuring 14.6 cm. Pancreas: Normal Adrenal glands: The adrenal glands are normal. Gallbladder: Cholelithiasis Kidneys: No masses are evident. No hydronephrosis is present. No cysts are present. Delayed images were obtained through the kidneys, which remain unremarkable. Aorta: Vascular calcification is within the aorta. Inferior vena cava: Normal. CT PELVIS: Loops of bowel within the abdomen and pelvis are normal. There are loops of bowel which are incom pletely distended or lack oral contrast limiting their evaluation. Appendix: Normal as visualized. Urinary bladder: Normal. Genitourinary structures: Prostate is prominent. Osseous structures: No suspicious lytic or sclerotic lesions. IMPRESSIONS: 1. Couple of punctate nodules within the lung crespo, stable from prior examination. This isn't prese nt and diminished in size from 09/20/2016. This should be confirmed as stable over the course of 2 year s. 2. Cholelithiasis. 3. Splenomegaly. 4. Mild fatty infiltration of the liver. Suspected liver masses appear stable
== END | disposition home or self-care (01) ==
LOC: RADPROMAIN 10:34
PROVIDERS: ATTEND Internal Medicine Hematology & Oncology
DX: K76.0 Fatty (change of) liver, not elsewhere classified (principal); R16.1 Splenomegaly, not elsewhere classified; K80.20 Calculus of gallbladder without cholecystitis without obstruction; R91.8 Other nonspecific abnormal finding of lung field; C18.2 Malignant neoplasm of ascending colon; Z88.6 Allergy status to analgesic agent
CPT/HCPCS: 82565; 84520; 71260; 74177; 36415; J1642; Q9967

== ENCOUNTER → 2018-06-24 | Outpatient (CLI) | payer OTHER ==
[2018-06-24 10:07] LABS: Blood Urea Nitrogen 15 mg/dL (9-20)
--- NOTE | 2018-06-24 12:09 | CT ---
EXAMINATION TYPE: CT ChestAbdPelvis w con DATE OF EXAM: 06/24/2018 COMPARISON: Prior CT chest abdomen pelvis 04/01/2018 HISTORY: Colon cancer CT DLP: 940 mGycm Automated exposure control for dose reduction was used. CONTRAST: CT scan of the chest, abdomen and pelvis is performed with Oral Contrast and with IV Contrast, patien t injected with 100 mL of Isovue 300. FINDINGS: Port-A-Cath again noted in the left pectoral region, there is a left jugular approach, dist al tip coursing to the level of the superior vena cava. LUNGS: The lungs are stable, there is no concerning parenchymal mass or nodule identified. There is no pleural effusion or pneumothorax seen. The tracheobronchial tree is patent. MEDIASTINUM: There are no greater than 1 cm hilar or mediastinal lymph nodes. No pericardial effusi on is seen. AORTA: No significant abnormality is seen. Some atheromatous change is suspected, soft plaque at the origin of the innominate, left common carotid artery. Vessels OTHER: No additional significant abnormality is seen. LIVER/GB: Multiple foci of increased attenuation are scattered within the liver as on prior, the live r without significant interval change, gallbladder shows stones as on prior. There are calcified. PANCREAS: No significant abnormality is seen. SPLEEN: Enlarged markedly as on prior ADRENALS: No significant abnormality is seen. KIDNEYS: No significant abnormality is seen. REPRODUCTIVE ORGANS: Prostate is enlarged as on prior. Surgical clips present in the region of the sc rotum bilaterally likely due to postcholecystectomy change. BOWEL: Abnormal duodenal wall thickening with some periduodenal inflammatory change is again seen, i ncidental lipoma at the fourth portion of the duodenum as on prior. There are small bowel loops show wall thickening. The appendix shows a similar appearance, there is luminal air and contrast present. The cecum shows an irregular soft tissue appearance similar to prior exam is indeterminate. No bowel obstruction. FREE AIR: No Free Air visible. ASCITES: None seen. RETROPERITONEAL ADENOPATHY: No retroperitoneal adenopathy is seen. LYMPH NODES: No greater than 1 cm abdominal or pelvic lymph nodes are appreciated. URINARY BLADDER: Urine distended, there is some urinary bladder wall thickening possibly due to chemical dependency counselor katheryn outlet obstruction. PELVIC ADENOPATHY: None visualized. OSSEOUS STRUCTURES: No significant abnormality is seen. Degenerative disc changes in the visualized spine. There is mild spinal curvature. IMPRESSION: Findings are similar to prior exam. No significant interval change.
== END | disposition home or self-care (01) ==
LOC: RADPROMAIN 09:12
PROVIDERS: ATTEND Internal Medicine Hematology & Oncology
DX: Z03.89 Encounter for observation for other suspected diseases and conditions ruled out (principal); C18.2 Malignant neoplasm of ascending colon; Z95.828 Presence of other vascular implants and grafts
CPT/HCPCS: 82565; 84520; 71260; 74177; 36415; Q9967 ×2

== ENCOUNTER → 2018-10-08 | Outpatient (CLI) | payer MEDICARE, OTHER ==
--- NOTE | 2018-10-08 10:33 | CT ---
EXAMINATION TYPE: CT ChestAbdPelvis w con DATE OF EXAM: 10/08/2018 COMPARISON: CT chest abdomen and pelvis June 24, 2018 and older CTs back through 2016. PET CT May. HISTORY: Colon cancer, observe for mets CT DLP: 613.9 mGycm. Automated Exposure Control for Dose Reduction was Utilized. CONTRAST: CT scan of the thorax, abdomen and pelvis is performed with IV Contrast, patient injected with 100 ml mL of Isovue 300. FINDINGS: LUNGS: Mild underlying emphysematous change with mild scattered parenchymal scarring. No suspicious new nodu les or masses. No pleural effusion or pneumothorax is evident. MEDIASTINUM: There are no new greater than 1 cm hilar or mediastinal lymph nodes. Stable prominent con rderline 1 cm right hilar lymph node axial image 26 back through 2017. No cardiomegaly or pericardia l effusion is seen. OTHER: Small degree of bilateral gynecomastia. Stable left internal jugular Mediport catheter LIVER/GB: Liver redemonstrates multiple calcific and hyperdense foci. Findings felt to reflect areas of treated neoplasm. There is however suspicious hypodense lesion left hepatic lobe measuring 3.2 x 3 .1 cm axial image 51 series 3 increased in size from most recent CT with some hyperdense component campa periorly. There is truncated appearance left hepatic lobe redemonstrated. Subcentimeter hypodense les ion image 27 series 5 right hepatic lobe is stable from prior study image 63 series 3. Numerous dependent calcified gallstones are redemonstrated. PANCREAS: No significant abnormality is seen. SPLEEN: Splenomegaly is redemonstrated measuring 17.9 cm long axis significantly changed from most re cent CT. ADRENALS: No significant abnormality is seen. KIDNEYS: No significant abnormality is seen. BOWEL: Oral contrast reaches level of rectum. There is persistent moderate wall thickening throughout the right colon including cecum could reflect combination of inflammatory or infectious process on b ackground of known neoplasm. Extension into terminal ileum is present coronal image 38. Normal contra st-filled appendix extends posterior from the cecum. There is new mild paracolic and intrapelvic flui d and fat stranding GENITAL ORGANS: Prostate gland is stable and mildly enlarged bulging on bladder base. Bladder wall sh ows mild concentric wall thickening presumed related to outlet obstruction from slightly enlarged pro state gland. Small amount of free fluid in pelvis remains present. LYMPH NODES: No greater than 1cm abdominal or pelvic lymph nodes are appreciated. OSSEOUS STRUCTURES: Multilevel facet arthropathy lower lumbar spine. Moderate disc space narrowing wi th vacuum disc phenomenon lumbosacral junction. OTHER: No significant additional abnormality is seen. IMPRESSION: Worsening right-sided colonic thickening with increasing surrounding fat stranding and fl uid could reflect combination of acute infectious or inflammatory process on background known neoplas m. Local neoplastic progression cannot be excluded. There is suspicion for worsening hepatic metastat ic disease as there is enlarging hypodense lesion left hepatic lobe noted. Correlate clinically.
== END | disposition home or self-care (01) ==
LOC: RADPROMAIN 06:58
PROVIDERS: ATTEND Internal Medicine Hematology & Oncology
DX: K63.89 Other specified diseases of intestine (principal); C18.2 Malignant neoplasm of ascending colon; Z88.6 Allergy status to analgesic agent
CPT/HCPCS: 71260; 74177; J1642; Q9967

== ENCOUNTER 2018-10-31 11:48 | Day surgery (SDC) | payer MEDICARE, OTHER ==
[2018-10-30 10:11] VITALS: BMI 22.8
[~2018-10-31 11:48] MED LIST changes: -DEXAMETHASONE SOD PHOSPHATE 10 MG/ML 1 ML VIAL IV ONE; -HYDROmorphone 1 MG/ML 1 ML SYRINGE IVP PRN; -MIDAZOLAM 2 MG/2 ML VIAL IV PRN; -ONDANSETRON 4 MG/2 ML VIAL IVP ONE; -SCOPOLAMINE 1.5MG/72HR PATCH TRANSDERM ONE; -ceFAZolin 2 GM in SODIUM CHLORIDE 0.9% 100 ML IVPB ONE
[2018-10-31 12:12] VITALS: TEMP 98
[2018-10-31] MEDS ORDERED: PROPOFOL 10 MG/ML 20 ML VIAL IV ONE (12:57)
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
--- NOTE | 2018-10-31 13:29 | P.PCN ---
Date of Procedure: 10/31/18 Procedure(s) Performed: PREOPERATIVE DIAGNOSIS: Metastatic colon cancer POSTOPERATIVE DIAGNOSIS: Ascending colon mass PROCEDURE: Colonoscopy with biopsy ANESTHESIA: MAC SURGEON: Sukhdeep Gutiérrez M.D. SPECIMENS: Ascending colon mass ENDOSCOPIC PROCEDURE: The patient was placed on the endoscopy table in the left decubitus position. The Olympus colonoscope was inserted into the anus and passed under direct visualization to the base of the cecum. The appendiceal orifice was visualized. From that point the scope was slowly withdrawn inspecting all surfaces carefully. The patient's ascending colon mass was identified. This was friable. This was nonobstructing however did involve full circumference. Multiple biopsies were taken. The remainder of the transverse descending sigmoid and rectum were free of any neoplastic inflammatory or polypoid lesions. There is no visible diverticulosis. Digital rectal examination was normal. The patient was taken to the recovery room in stable condition per anesthesia guidelines. RECOMMENDATIONS: Await biopsy results.
[2018-10-31 13:37] VITALS: BP 198/97; PULSE 67; RESP 18
== END 2018-10-31 14:11 | disposition home or self-care (01) ==
LOC: ORWHC2ENDO 11:48
PROVIDERS: ATTEND Surgery
DX: C18.9 Malignant neoplasm of colon, unspecified (principal); C78.7 Secondary malignant neoplasm of liver and intrahepatic bile duct; E78.5 Hyperlipidemia, unspecified; Z94.5 Skin transplant status; Z95.828 Presence of other vascular implants and grafts; Z87.828 Personal history of other (healed) physical injury and trauma; F17.200 Nicotine dependence, unspecified, uncomplicated; Z80.42 Family history of malignant neoplasm of prostate; Z88.6 Allergy status to analgesic agent
CPT/HCPCS: 88305; 45380; J2704

== ENCOUNTER 2018-11-18 12:50 | Day surgery (SDC) | payer MEDICARE, OTHER ==
[2018-11-18 13:27] VITALS: BP 167/86; PULSE 60; RESP 6; TEMP 98.2
--- NOTE | 2018-11-18 14:26 | IR ---
Port-A-Cath check HISTORY: Pressure on injection, Port-A-Cath malfunction 0.1 minutes fluoroscopy time, 91 intraoperative images document the procedure. Gentle hand injection of contrast material performed under fluoroscopic observation. 5 procedure cath eter is infused with heparin flush. No immediate complication. The patient discharged in stable condi tion. There is no evident leak from the Port-A-Cath. Left internal jugular vein approach noted in the cours e of the catheter which is looped in the neck. Contrast courses from the distal tip of the catheter a long the lateral margin of the superior vena cava. No evident fibrin sheath. IMPRESSION: Normal Port-A-Cath check.
== END 2018-11-18 16:00 | disposition home or self-care (01) ==
LOC: CATHCVL 12:50
PROVIDERS: ATTEND Radiology Diagnostic Radiology
DX: T85.618A Breakdown (mechanical) of other specified internal prosthetic devices, implants and grafts, initial encounter (principal); C18.2 Malignant neoplasm of ascending colon; D69.59 Other secondary thrombocytopenia; I10 Essential (primary) hypertension; G62.0 Drug-induced polyneuropathy; F17.210 Nicotine dependence, cigarettes, uncomplicated; Z80.42 Family history of malignant neoplasm of prostate; Z88.6 Allergy status to analgesic agent
CPT/HCPCS: 36598